=== PATIENT | female | born 1960 | race Hispanic/Latino ===

== ENCOUNTER 2017-07-02 19:01 | Emergency (ER) | payer MEDICAID, OTHER, SELFPAY ==
[2017-07-02 19:14] VITALS: RESP 18; TEMP 97.8
[2017-07-02] MEDS ORDERED: Morphine 4 mg/ml ISec IM STA (19:23)
--- NOTE | 2017-07-02 19:23 | ED PDOC ---
Arrival/HPI - General Chief Complaint: Trauma Time Seen by Provider: 07/02/17 19:15 Historian: Patient - History of Present Illness Narrative History of Present Illness (Text): 07/02/17 19:16 57 y/o female, allergic to nsaid, c/o fall from climbing the chair about 1 day ago. Pt. stated that she is not on any antiplatete or anticoagulant, c/o rt. hand/wrist pain with the bilateral knee pain x 1 day. Pt. was cleaning the ceiling fan yesterday by climbing on the chair which she fall on the rt. hand/ wrist accidentally and bilateral knees along with hitting the head, no LOC but felt dizziness afterwards but resolved, no chest pain/shortness of breath prior to the fall. 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 - Psychiatric Hx Substance Use: No - Surgical History Hx Musculoskeletal Surgery: Yes (left knee and right knee) Other/Comment: Ovarian/cervical/uterian CA removed. 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 Family/Social History Smoking Status: Former Smoker Hx Alcohol Use: No Hx Substance Use: No Allergies/Home Meds Allergies/Adverse Reactions: Allergies ibuprofen Adverse Reaction (Verified 07/02/17 19:15) ANAPHYLAXIS Pt only has one kidney and should not take. Home Medications: Home Meds Medication Instructions Recorded Confirmed Alprazolam [Xanax] 2 mg PO HS 07/02/17 07/02/17 Sertraline [Zoloft] 200 mg PO DAILY 07/02/17 07/02/17 Topiramate [Topamax] 50 mg PO DAILY 07/02/17 07/02/17 traZODone [trazODONE HYDROCHLORIDE] 50 mg PO DAILY 07/02/17 07/02/17 Physical Exam Vital Signs Reviewed: Yes Vital Signs Temp Pulse Resp BP Pulse Ox 07/02/17 19:07 97.8 F 90 18 107/76 97 Temperature: Afebrile Blood Pressure: Normal Pulse: Regular Respiratory Rate: Normal Appearance: Positive for: Well-Appearing, Non-Toxic Pain Distress: Severe Mental Status: Positive for: Alert and Oriented X 3 - Systems Exam Head: Present: Atraumatic, Normocephalic. No: Tenderness, Contusion, Swelling, Ecchymosis, Abrasion, Laceration, Other Pupils: Present: PERRL Extroacular Muscles: Present: EOMI Conjunctiva: Present: Normal Ears: Present: NORMAL TM, Normal Canal. No: Erythema Mouth: Present: Moist Mucous Membranes Pharnyx: No: ERYTHEMA, EXUDATE, TONSILS ENLARGED, Uvular Deviation, Muffled/ Hoarse Voice, Soft Palate/Uvular Edema Nose (External): Present: Atraumatic. No: Abrasion, Contusion, Laceration Nose (Internal): Present: Normal Inspection, No Active Bleeding. No: Rhinorrhea , Septal Hematoma, Epistaxis Neck: Present: Normal Range of Motion Respiratory/Chest: Present: Clear to Auscultation, Good Air Exchange. No: Respiratory Distress, Accessory Muscle Use Cardiovascular: Present: Regular Rate and Rhythm, Normal S1, S2. No: Murmurs Abdomen: Present: Normal Bowel Sounds. No: Tenderness, Distention, Peritoneal Signs, Rebound, Guarding Back: Present: Normal Inspection Upper Extremity: Present: Normal Inspection, Other (Rt. hand/wrist: +ttp on the 2nd MCPJ with skin intact, +ttp on the distal radial region with skin intact, no scaphoid tenderness, FROM without limitation, sensatin intact, motor 5/5, + radial pulse, capillary< 2 seonds, neurovascular intact. ). No: Cyanosis, Edema Lower Extremity: Present: Normal Inspection, Other (Bilateral knees: +ttp on the lt. medial aspect of the knee with the rt. knee with no tenderness or swelling, negative goran and holguin signs, FROM without limitation sensation intact, motor 5/5, +DPPT pulses, capillary refill< 2 seconds, neurocvascular intact. ). No: Edema Neurological: Present: GCS=15, CN II-XII Intact, Speech Normal Skin: Present: Warm, Dry, Normal Color. No: Rashes Psychiatric: Present: Alert, Oriented x 3, Normal Insight, Normal Concentration Medical Decision Making ED Course and Treatment: 07/02/17 19:25 -CT head -Bilateral knee/rt. hand and wrist xrays -Morphine 4mg IM -Observe and reassess 07/02/17 21:59 -mile wrap, knee immobilizer, prefers crutches but if unable to tolerate crutches then cane will be ideal to prevent fall. -CT head show: no acute findings. -Bilateral knee xrays show no fracture or dislocation. -Rt. hand xray show no fracture or dislocation. -Rt. wrist ray show no fracture or dislocation. -Pt. will like more pain med to get through tonight and she doesn't want [facility] as prescriptions. -Discharge home with mile wraps, knee immobilizer, crutches, take tylenol at home as needed, ice compression, follow up with your own pmd and orthopedic within 2 days, return to the ER for any new or worsening signs or symptoms. - RAD Interpretation Radiology Orders: 07/02/17 19:23 HEAD W/O CONTRAST [CT] Stat HAND RIGHT 3 VIEWS [RAD] Stat KNEE W PATELLA BILAT 3 VIEW [RAD] Stat WRIST, RIGHT 3 VIEWS [RAD] Stat CT Head: FINDINGS: Brain: Ventricles are normal in size and configuration. There is no midline shift. There are no intraaxial or extra-axial mass lesions or areas of hemorrhage. There are no abnormal fluid collections. Victoria-white differentiation is maintained. Ventricles: See above. Bones: Cranial vault is intact. Soft tissues: unremarkable Sinuses: There is no acute sinusitis. Ears and mastoids: Middle ears and mastoids are unremarkable Orbits: Orbital contents are unremarkable. IMPRESSION: No acute intracranial abnormality Thank you for allowing us to participate in the care of your patient. Dictated and Authenticated by: Lorenza Suarez MD 07/02/2017 9:55 PM Eastern Time ([place] & [place]) Rt. hand xray: TECHNIQUE: Frontal, lateral and oblique views of the right hand. COMPARISON: There are no prior studies for comparison. FINDINGS: Bones/joints: There is no soft tissue swelling or soft tissue calcification. There are no fractures or dislocations. Bone mineralization is normal. Joint spaces are maintained. Soft tissues: see above IMPRESSION: No fracture Thank you for allowing us to participate in the care of your patient. Dictated and Authenticated by: Lorenza Suarez MD 07/02/2017 9:52 PM Eastern Time ([place] & [place]) Rt. wrist xray: TECHNIQUE: Frontal, lateral and oblique views of the right wrist. COMPARISON: There are no prior studies for comparison. FINDINGS: Bones/joints: There is no soft tissue swelling or soft tissue calcification. There are no fractures or dislocations. Bone mineralization is normal. Joint spaces are maintained. Soft tissues: see above IMPRESSION: No fracture Thank you for allowing us to participate in the care of your patient. 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 Disposition/Present on Arrival - Present on Arrival Any Indicators Present on Arrival: No History of DVT/PE: No History of Uncontrolled Diabetes: No Urinary Catheter: No History of Decub. Ulcer: No History Surgical Site Infection Following: None - Disposition Have Diagnosis and Disposition been Completed?: Yes Diagnosis: Accidental fall, Contusion, Arthralgia Disposition: HOME/ ROUTINE Disposition Time: 22:06 Patient Plan: Discharge Patient Problems: Current Active Problems Problem Status Onset Accidental fall Acute Contusion Acute Arthralgia Acute Condition: IMPROVED Additional Instructions: -Discharge home with mile wraps, knee immobilizer, crutches, take tylenol at home as needed, ice compression, follow up with your own pmd and orthopedic within 2 days, return to the ER for any new or worsening signs or symptoms. Prescriptions: Acetaminophen [Tylenol Extra Strength] 500 mg PO QID PRN #30 tablet PRN Reason: Other Referrals: PCP,NO [Primary Care Provider] - Follow up with primary Eleazar Gibbons DO [Staff Provider] - Follow up with primary [facility] [Outside] - Follow up with primary Forms: [employer] (Pashto), WORK NOTE
--- NOTE | 2017-07-02 21:52 | RAD ---
EXAM: XR Right Hand Complete, 3 or More Views EXAM DATE/TIME: 07/02/2017 7:23 PM CLINICAL HISTORY: 57 years old, female; Pain; Hand; Right; Additional info: Rt. Hand injury from fall TECHNIQUE: Frontal, lateral and oblique views of the right hand. COMPARISON: There are no prior studies for comparison. FINDINGS: Bones/joints: There is no soft tissue swelling or soft tissue calcification. There are no fractures or dislocations. Bone mineralization is normal. Joint spaces are maintained. Soft tissues: see above IMPRESSION: No fracture
--- NOTE | 2017-07-02 21:54 | RAD ---
EXAM: XR Right Wrist Complete, 3 or More Views EXAM DATE/TIME: 07/02/2017 7:23 PM CLINICAL HISTORY: 57 years old, female; Pain; Wrist; Right; Additional info: Rt. Wrist fall TECHNIQUE: Frontal, lateral and oblique views of the right wrist. COMPARISON: There are no prior studies for comparison. FINDINGS: Bones/joints: There is no soft tissue swelling or soft tissue calcification. There are no fractures or dislocations. Bone mineralization is normal. Joint spaces are maintained. Soft tissues: see above IMPRESSION: No fracture
--- NOTE | 2017-07-02 21:56 | CT ---
EXAM: CT Head Without Intravenous Contrast EXAM DATE/TIME: 07/02/2017 7:23 PM CLINICAL HISTORY: 57 years old, female; Injury or trauma; Fall; Initial encounter; Abrasion; Head, generalized; Additional info: Fall from standing TECHNIQUE: Axial computed tomography images of the head/brain without intravenous contrast. All CT scans at this facility use one or more dose reduction techniques, viz.: automated exposure control; ma/kV adjustment per patient size (including targeted exams where dose is matched to indication; i.e. head); or iterative reconstruction technique. COMPARISON: There are no prior studies for comparison. FINDINGS: Brain: Ventricles are normal in size and configuration. There is no midline shift. There are no intra-axial or extra-axial mass lesions or areas of hemorrhage. There are no abnormal fluid collections. Victoria-white differentiation is maintained. Ventricles: See above. Bones: Cranial vault is intact. Soft tissues: unremarkable Sinuses: There is no acute sinusitis. Ears and mastoids: Middle ears and mastoids are unremarkable Orbits: Orbital contents are unremarkable. IMPRESSION: No acute intracranial abnormality
[2017-07-02] MEDS ORDERED: Morphine 2 mg/ml ISec IM STA (22:05)
[2017-07-02 22:37] VITALS: BP 112/71; PULSE 88; O2SAT 98
--- NOTE | 2017-07-03 13:32 | RAD ---
PROCEDURE: Bilateral Knee Radiographs. HISTORY: bilateral knee injury from fall, h/o patellar fx COMPARISON: None. FINDINGS: BONES: Right Knee: Bone alignment and mineralization are normal. No acute fracture. Left Knee: Bone alignment and mineralization are normal. No acute fracture. JOINTS: Right Knee: There is mild tricompartmental degenerative osteoarthrosis, worse in the medial compartment. Left knee: There is mild tricompartmental degenerative osteoarthrosis, worse in the medial compartment. SOFT TISSUES: Right Knee: Normal. Left Knee: There is mild prepatellar soft tissue swelling. JOINT EFFUSION: Right Knee: None. Left Knee: None. OTHER FINDINGS: None. IMPRESSION: No acute fracture or dislocation. Mild left prepatellar soft tissue swelling. Mild tricompartmental degenerative osteoarthrosis, worse in the medial compartment.
== END 2017-07-02 22:35 | disposition home or self-care (01) ==
LOC: ED 19:01
DX: T14.8 Other injury of unspecified body region (principal); W07.XXXA Fall from chair, initial encounter; M25.50 Pain in unspecified joint
CPT/HCPCS: 70450; 73110; 73130; 73562; 96372; 99284; J2270

== ENCOUNTER 2017-07-04 20:55 | Emergency (ER) | payer OTHER ==
[2017-07-04 21:13] VITALS: RESP 20; TEMP 97.9
[2017-07-04] MEDS ORDERED: Morphine 2 mg/ml ISec IM STA (21:49)
--- NOTE | 2017-07-04 22:05 | ED PDOC ---
Arrival/HPI <Scott Acosta - Last Filed: 07/04/17 22:12> - General Historian: Patient - History of Present Illness Time/Duration: Other (2 days) Symptom Onset: Sudden Symptom Course: Unchanged Quality: Aching Severity Level: 10 <Rhianna Gonzalez - Last Filed: 07/04/17 22:56> - General Chief Complaint: Lower Extremity Problem/Injury Time Seen by Provider: 07/04/17 21:33 - History of Present Illness Narrative History of Present Illness (Text): 07/04/17 22:01 57yr old female presents today with left knee x 2 days. pt states on 07/02 she fell off a chair cleaning a ceiling fan and came to ER for evaluation at that time. pt states she has xrays of both knees and right hand and wrist and was told there was no fracture. pt was advised to take tylenol at home, but patient states tylenol is not helping with the pain. pt denies numbness, weakness, tingling in the extremity. no dizziness or weakness. no other complaints. 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 - Psychiatric Hx Substance Use: No - Surgical History Hx Musculoskeletal Surgery: Yes (left knee and right knee) Other/Comment: Ovarian/cervical/uterian CA removed. 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 - Anesthesia Hx Anesthesia: Yes Hx Anesthesia Reactions: No Hx Malignant Hyperthermia: No <Rhianna Gonzalez - Last Filed: 07/04/17 22:56> Family/Social History - Physician Review Nursing Documentation Reviewed: Yes Family/Social History: Unknown Family HX Smoking Status: Former Smoker Hx Alcohol Use: No Hx Substance Use: No <Rhianna Gonzalez - Last Filed: 07/04/17 22:56> Allergies/Home Meds <Scott Acosta - Last Filed: 07/04/17 22:12> <Rhianna Gonzalez - Last Filed: 07/04/17 22:56> Allergies/Adverse Reactions: Allergies ibuprofen Adverse Reaction (Verified 07/02/17 19:15) ANAPHYLAXIS Pt only has one kidney and should not take. Home Medications: Home Meds Medication Instructions Recorded Confirmed Alprazolam [Xanax] 2 mg PO HS 07/02/17 07/02/17 Sertraline [Zoloft] 200 mg PO DAILY 07/02/17 07/02/17 Topiramate [Topamax] 50 mg PO DAILY 07/02/17 07/02/17 traZODone [trazODONE HYDROCHLORIDE] 50 mg PO DAILY 07/02/17 07/02/17 Review of Systems - Review of Systems Constitutional: absent: Fatigue, Fevers Respiratory: absent: SOB, Cough Cardiovascular: absent: Chest Pain, Palpitations Gastrointestinal: absent: Abdominal Pain, Nausea, Vomiting Musculoskeletal: Arthralgias. absent: Back Pain, Neck Pain Skin: absent: Rash, Pruritis Neurological: absent: Headache, Dizziness Psychiatric: absent: Suicidal Ideation <Rhianna Gonzalez Last Filed: 07/04/17 22:56> Physical Exam Vital Signs Reviewed: Yes Temperature: Afebrile Blood Pressure: Hypertensive Pulse: Regular Respiratory Rate: Normal Appearance: Positive for: Well-Appearing, Non-Toxic, Comfortable Pain Distress: None Mental Status: Positive for: Alert and Oriented X 3 - Systems Exam Head: Present: Atraumatic Mouth: Present: Moist Mucous Membranes Neck: Present: Normal Range of Motion Respiratory/Chest: Present: Clear to Auscultation Cardiovascular: Present: Tachycardic Abdomen: No: Tenderness Upper Extremity: Present: Other (right wrist in splint. no edema. ) Lower Extremity: Present: NORMAL PULSES, Normal ROM, Tenderness (left knee; + ttp over anterior aspect of knee. minimal edema, + ecchymosis along anterior aspect of knee and proximal Tibfib. ), Swelling, Neurovascularly Intact, Capillary Refill < 2 s. No: CALF TENDERNESS, Erythema, Deformity Neurological: Present: GCS=15, Speech Normal Skin: Present: Warm, Dry Psychiatric: Present: Alert, Oriented x 3 <Rhianna Gonzalez Last Filed: 07/04/17 22:56> Vital Signs Temp Pulse Resp BP Pulse Ox 07/04/17 22:39 99 H 20 122/77 96 07/04/17 21:17 129/66 07/04/17 21:12 97.9 F 115 H 20 138/123 H 98 Medical Decision Making <Scott Acosta Filed: 07/04/17 22:12> <Rhianna Gonzalez - Last Filed: 07/04/17 22:56> ED Course and Treatment: 07/04/17 22:08 57yr old female with left knee s/p fall 2 days ago. xrays from yesterday are read by radiologist as no fracture. morphine 2 mg IM given for pain. pt has knee immobilizer. pt was advised to use immobilizer and f/u with orthopedist. Patient reassessment: Patient feeling better ambulating with a steady gait with a knee immobilizer and cane Patient is getting a ride home Patient verbalizes understanding of discharge instructions and need for immediate followup. all aspects of this case were discussed the attending of record. Impression: Knee pain, contusion knee Percocet 1 tablet every 6 hours as needed for moderate to severe pain: May cause drowsiness. Use caution if you are combining this medication with your other medications. Rest, ice, elevation Use knee immobilizer and cane for ambulation Follow-up with the orthopedist within the next 2 days Return immediately if symptoms worsen persist or if new concerning symptoms develop 07/04/17 22:53 (Rhianna Gonzalez) - Medication Orders Current Medication Orders: Discontinued Medications Morphine Sulfate (Morphine) 2 mg IM STAT STA Stop: 07/04/17 21:50 Last Admin: 07/04/17 22:01 Dose: 2 mg MAR Pain Assessment Document 07/04/17 22:01 SS (Rec: 07/04/17 22:04 [id number]) Pain Reassessment Is this a pain reassessment? No Sleep Is patient sleeping during reassessment? 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 <Scott Acosta - Last Filed: 07/04/17 22:12> Disposition/Present on Arrival <Scott Acosta - Last Filed: 07/04/17 22:12> - Present on Arrival Any Indicators Present on Arrival: No History of DVT/PE: No History of Uncontrolled Diabetes: No Urinary Catheter: No History of Decub. Ulcer: No History Surgical Site Infection Following: None - Disposition Have Diagnosis and Disposition been Completed?: Yes Disposition Time: 22:54 Patient Plan: Discharge <Rhianna Gonzalez - Last Filed: 07/04/17 22:56> - Disposition Diagnosis: Knee pain, Contusion, knee Disposition: HOME/ ROUTINE Condition: GOOD Discharge Instructions (ExitCare): Knee Pain (ED) Additional Instructions: Percocet 1 tablet every 6 hours as needed for moderate to severe pain: May cause drowsiness. Use caution if you are combining this medication with your other medications. Rest, ice, elevation Use knee immobilizer and cane for ambulation Follow-up with the orthopedist within the next 2 days Return immediately if symptoms worsen persist or if new concerning symptoms develop Prescriptions: oxyCODONE/Acetaminophen [Percocet 5/325 mg Tab] 1 tab PO Q6H PRN #6 tab PRN Reason: moderate to severe pain Referrals: Eleazar Gibbons DO [Staff Provider] - Follow up with primary Lilli Pablo MD [Staff Provider] - Follow up with primary Forms: [employer] (Romansh)
[2017-07-04 22:46] VITALS: BP 122/77; PULSE 99; O2SAT 96
== END 2017-07-04 23:08 | disposition home or self-care (01) ==
LOC: ED 20:55
DX: M25.562 Pain in left knee (principal); S80.02XA Contusion of left knee, initial encounter; W07.XXXA Fall from chair, initial encounter
CPT/HCPCS: 96372; 99283; J2270

== ENCOUNTER 2017-08-11 14:02 | Emergency (ER) | payer MEDICAID, OTHER ==
[2017-08-11] MEDS ORDERED: Albuterol-Ipratrop 3 mg / 0.5 (3 ml) UD ONE (14:16)
--- NOTE | 2017-08-11 14:17 | ED PDOC ---
Arrival/HPI - General Time Seen by Provider: 08/11/17 14:10 Historian: Patient - History of Present Illness Narrative History of Present Illness (Text): 08/11/17 14:14 37yo female who present with 4days history of nonproductive cough, fever(Tamx 103) last night, decrease appetite, generalized weakness. States she was using albuterol inhaler without relieve. She notes previous history of Pneumonia. Denies SOB, chest pain, sick contact, travel, any other complaint. 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 - Psychiatric Hx Substance Use: No - Surgical History Hx Musculoskeletal Surgery: Yes (left knee and right knee) Other/Comment: Ovarian/cervical/uterian CA removed. 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 - Anesthesia Hx Anesthesia: Yes Hx Anesthesia Reactions: No Hx Malignant Hyperthermia: No Family/Social History - Physician Review Nursing Documentation Reviewed: Yes Family/Social History: Unknown Family HX Smoking Status: Former Smoker Hx Alcohol Use: No Hx Substance Use: No Allergies/Home Meds Allergies/Adverse Reactions: Allergies ibuprofen Adverse Reaction (Verified 07/02/17 19:15) ANAPHYLAXIS Pt only has one kidney and should not take. Home Medications: Home Meds Medication Instructions Recorded Confirmed Alprazolam [Xanax] 2 mg PO HS 07/02/17 08/11/17 Sertraline [Zoloft] 200 mg PO DAILY 07/02/17 08/11/17 Topiramate [Topamax] 50 mg PO DAILY 07/02/17 08/11/17 traZODone [trazODONE HYDROCHLORIDE] 50 mg PO DAILY 07/02/17 08/11/17 Review of Systems - Physician Review All systems were reviewed & negative as marked: Yes - Review of Systems Constitutional: Fevers Eyes: Normal ENT: Normal Respiratory: Cough. absent: SOB, Sputum, Wheezing Cardiovascular: Normal Gastrointestinal: Normal Genitourinary Female: Normal Musculoskeletal: Normal Skin: Normal Neurological: Normal Endocrine: Normal Hemo/Lymphatic: Normal Psychiatric: Normal Physical Exam Vital Signs Reviewed: Yes Vital Signs Temp Pulse Resp BP Pulse Ox 08/11/17 16:02 111 H 18 118/85 95 08/11/17 14:24 98.2 F 110 H 22 113/56 L 98 Temperature: Afebrile Blood Pressure: Normal Pulse: Regular Respiratory Rate: Normal Appearance: Positive for: Well-Appearing, Non-Toxic, Comfortable Pain Distress: Mild Mental Status: Positive for: Alert and Oriented X 3 - Systems Exam Head: Present: Atraumatic, Normocephalic Pupils: Present: PERRL Extroacular Muscles: Present: EOMI Conjunctiva: Present: Normal Mouth: Present: Moist Mucous Membranes Neck: Present: Normal Range of Motion Respiratory/Chest: Present: Clear to Auscultation, Good Air Exchange, Wheezes ( Diffuse). No: Respiratory Distress, Accessory Muscle Use, Decreased Breath Sounds, Rales, Retracting, Rhonchi Cardiovascular: Present: Regular Rate and Rhythm, Normal S1, S2. No: Murmurs Abdomen: Present: Normal Bowel Sounds. No: Tenderness, Distention, Peritoneal Signs Back: Present: Normal Inspection Upper Extremity: Present: Normal Inspection. No: Cyanosis, Edema Lower Extremity: Present: Normal Inspection. No: Edema Neurological: Present: GCS=15, CN II-XII Intact, Speech Normal Skin: Present: Warm, Dry, Normal Color. No: Rashes Psychiatric: Present: Alert, Oriented x 3, Normal Insight, Normal Concentration Medical Decision Making ED Course and Treatment: 08/11/17 19:27 LAb unremarkable CXR NAD PT tx with abx, albuterol and antitussive for bronchitis. Referred to her PMD. - Lab Interpretations Lab Results: 08/11/17 14:35 08/11/17 14:35 Lab Results 08/11/17 14:35: Sodium 141, Potassium 3.6, Chloride 100, Carbon Dioxide 26, Anion Gap 19, BUN 10, Creatinine 1.1, Est GFR ( Amer) > 60, Est GFR (Non- Af Amer) 51, Random Glucose 110, Calcium 10.1, Total Bilirubin 0.9, AST 36, ALT 37, Alkaline Phosphatase 99, Total Protein 8.2, Albumin 4.7, Globulin 3.5, Albumin/Globulin Ratio 1.3 08/11/17 14:35: WBC 8.8, RBC 5.42, Hgb 14.8, Hct 44.4, MCV 81.9, MCH 27.3, MCHC 33.3, RDW 14.2, Plt Count 237, MPV 9.1 - RAD Interpretation Radiology Orders: 08/11/17 14:30 CHEST PORTABLE [RAD] Stat - Medication Orders Current Medication Orders: Discontinued Medications Albuterol Sulfate (Albuterol 0.083% Inhal Sade (2.5 Mg/3 Ml) Ud) 2.5 mg INH STAT STA Stop: 08/11/17 15:36 Last Admin: 08/11/17 15:59 Dose: 2.5 mg Albuterol/Ipratropium (Duoneb 3 Mg/0.5 Mg (3 Ml) Ud) 3 ml IH STAT STA Stop: 08/11/17 14:32 Last Admin: 08/11/17 14:57 Dose: 3 ml Azithromycin (Zithromax) 500 mg PO STAT STA PRN Reason: Protocol Stop: 08/11/17 15:36 Last Admin: 08/11/17 15:59 Dose: 500 mg Methylprednisolone (Solu-Medrol) 125 mg IVP STAT STA Stop: 08/11/17 14:32 Last Admin: 08/11/17 14:57 Dose: 125 mg IVP Administration Document 08/11/17 14:57 AD (Rec: 08/11/17 14:57 AD [facility] [place] [facility] [id number][place] Charges for Administration # of IVP Administrations 1 Ondansetron HCl (Zofran Inj) 4 mg IVP STAT STA Stop: 08/11/17 15:04 Last Admin: 08/11/17 15:35 Dose: 4 mg IVP Administration Document 08/11/17 15:35 AD (Rec: 08/11/17 15:35 AD [facility] [place] [facility] [id number]) Charges for Administration # of IVP Administrations 1 Promethazine HCl/Codeine (Phenergan/Codeine Oral Syrup) 5 ml PO STAT STA Stop: 08/11/17 15:37 Last Admin: 08/11/17 16:00 Dose: 5 ml Disposition/Present on Arrival - Present on Arrival Any Indicators Present on Arrival: No History of DVT/PE: No History of Uncontrolled Diabetes: No Urinary Catheter: No History Surgical Site Infection Following: None - Disposition Have Diagnosis and Disposition been Completed?: Yes Diagnosis: Acute bronchitis Disposition: HOME/ ROUTINE Disposition Time: 15:40 Patient Plan: Discharge Condition: STABLE Discharge Instructions (ExitCare): Acute Bronchitis (ED) Additional Instructions: Take medication as directed Follow up with your doctor Return to ED for any new or worsening symptoms Prescriptions: Albuterol HFA [Ventolin HFA 90 mcg/actuation (8 g)] 2 puff IH [id number] #1 puff Azithromycin [Zithromax] 250 mg PO DAILY #4 tab Fluconazole [Diflucan] 150 mg PO ONCE #1 tab Promethazine HCl/Codeine [Prometh-Codein 6.25-10 mg/5 ml] 5 ml PO Q6 #100 syrup Referrals: [facility] at [facility] [place] [Outside] - Follow up with primary Forms: [employer] ([place])
[2017-08-11 14:25] VITALS: TEMP 98.2
[2017-08-11] MEDS ORDERED: Albuterol-Ipratrop 3 mg / 0.5 (3 ml) UD IH STA (14:31)
[2017-08-11 15:05] LABS: HEMATOCRIT 44.4 % (36.0-48.0); MEAN CELL VOLUME 81.9 fl (80.0-105.0); MEAN CORPUSCULAR HEMOGLOBIN 27.3 pg (25.0-35.0); MEAN CORPUSCULAR HGB CONC 33.3 g/dl (31.0-37.0); MEAN PLATELET VOLUME 9.1 fl (7.0-11.0); RED CELL DISTRIBUTION WIDTH 14.2 % (11.5-14.5); WHITE BLOOD COUNT 8.8 10^3/ul (4.5-11.0)
[2017-08-11 15:10] LABS: ALB/GLOB RATIO 1.3 (1.1-1.8); ALKALINE PHOSPHATASE 99 U/L (38-126); ALT/SGPT 37 U/L (7-56); AST/SGOT 36 U/L (14-36); BILIRUBIN,TOTAL 0.9 mg/dL (0.2-1.3); BLOOD UREA NITROGEN 10 mg/dL (7-21); CALCIUM 10.1 mg/dL (8.4-10.5); CARBON DIOXIDE 26 mmol/L (21-33); CHLORIDE 100 mmol/L (98-107); GFR AFRICAN-AMERICAN > 60; GLUCOSE,RANDOM 110 mg/dL (70-110); POTASSIUM 3.6 mmol/L (3.6-5.0); SODIUM 141 mmol/L (132-148); TOTAL PROTEIN 8.2 g/dL (5.8-8.3)
[2017-08-11] MEDS ORDERED: Albuterol 0.083% Inhal Sol (2.5 mg/3 mL) UD INH STA (15:35)
[2017-08-11] MEDS ORDERED: Promethazine/Cod 6.25mg-10mg/5ml Syr UD PO STA (15:36)
[2017-08-11 16:34] VITALS: BP 118/85; PULSE 111; RESP 18; O2SAT 95
--- NOTE | 2017-08-11 19:29 | RAD ---
HISTORY: cough COMPARISON: No prior. FINDINGS: LUNGS: No active pulmonary disease. PLEURA: No significant pleural effusion identified, no pneumothorax apparent. CARDIOVASCULAR: Normal. OSSEOUS STRUCTURES: No significant abnormalities. VISUALIZED UPPER ABDOMEN: Normal. OTHER FINDINGS: None. IMPRESSION: No acute cardiopulmonary disease appreciated.
== END 2017-08-11 16:20 | disposition home or self-care (01) ==
LOC: ED 14:02
DX: J20.9 Acute bronchitis, unspecified (principal); Z87.891 Personal history of nicotine dependence; Z94.0 Kidney transplant status
CPT/HCPCS: 71010; 80053; 85027; 87040; 94150; 96374; 96375; 99284; J2405; J2930